=== PATIENT | female | born 1995 | race American Indian/Alaskan Native ===

== ENCOUNTER 2018-12-25 13:43 | Emergency (ER) | payer OTHER ==
[2018-12-25 13:48] VITALS: BP 106/56
--- NOTE | 2018-12-25 13:59 | Emergency Department Report ---
Blank Doc - Documentation Documentation: 23-year-old female that presents with abdominal pain and nausea. Denies any va ginal bleeding. Stated is now but is not sure how long. This initial assessment/diagnostic orders/clinical plan/treatment(s) is/are subject to change based on patient's health status, clinical progression and re- assessment by fellow clinical providers in the ED. Further treatment and workup at subsequent clinical providers discretion. Patient/guardians urged not to elope from the ED as their condition may be serious if not clinically assessed and managed. Initial orders include: 1- Patient sent to [facility] for further evaluation and treatment 2- labs 3- UA 4- US OB
--- NOTE | 2018-12-25 15:02 | Ultrasound Report ---
ULTRASOUND OB LESS THAN 14 WEEKS FETUS ULTRASOUND OB TRANSVAGINAL HISTORY: Pelvic pain COMPARISON: None. TECHNIQUE: Routine transabdominal OB ultrasound performed. FINDINGS: Uterus: The uterus is normal size measuring 7.4 x 5.8 x 6.8 cm. Gestational Sac: There appears to be an intrauterine gestational sac with average diameter measuring 2.24 cm which correlates with a 7 week 1 day . Yolk Sac: Not seen Fetus/Embryo: Not seen Embryonic/ cardiac activity: Not seen Ovaries: The right ovary measures 3.2 x 2.4 x 2.7 cm and contains an approximate 2.1 cm complex predo minantly solid lesion. The left ovary is unremarkable measuring 2.2 x 1.1 x 1.3 cm. Additional findings: None. IMPRESSION No normal intrauterine is demonstrated. An empty gestational sac is identified within the e ndometrial canal which correlates with a 7 week 1 day . Although this could represent a very early intrauterine blighted ovum should be considered. 2.1 cm complex lesion in the right ovary which may represent a corpus luteum cyst. Please note that an ectopic is not entirely excluded at this time. Close interval follow-up is recommended. Signer Name: Francisco Meneses Jr, MD Signed: 12/25/2018 2:57 PM Workstation Name: [id number]
[2018-12-25 15:46] LABS: Bacteria,Urine 1+ /HPF (Negative); Bilirubin,Urine NEG (Negative); Blood,Urine NEG (Negative); Color,Urine Yellow (Yellow); Mucus,Urine FEW /HPF; Protein,Urine <15 mg/dL mg/dL (Negative); Urobilinogen,Urine < 2.0 mg/dL (<2.0)
[2018-12-25 15:52] LABS: Hematocrit 37.2 % (30.3-42.9); Hemoglobin 12.2 gm/dl (10.1-14.3); Mean Corpuscular HGB Conc 33 % (30-34); Mean Corpuscular Volume 88 fl (79-97); Platelet Count 204 K/mm3 (140-440); Red Blood Count 4.25 M/mm3 (3.65-5.03); Red Cell Distribution Width 14.5 % (13.2-15.2)
--- NOTE | 2018-12-25 15:52 | Emergency Department Report ---
ED Female HPI - General Chief complaint: Abdominal Pain Stated complaint: STOMACH PAIN Time Seen by Provider: 12/25/18 13:58 Source: patient Mode of arrival: Ambulatory Limitations: No Limitations - History of Present Illness Initial comments: Aleena is a very pleasant 23 yo female who presents with one month of abdominal pain. She has LLQ stabbing intermittent pain every few days. No pain at this time. No vaginal bleeding. LMP Home test mother is at the bedside, provided similar history First for Aleena YIN Complaint: other (left lower quadrant pain positive home test LMP 10/31/2018) -: Gradual, month(s) (1) Severity: mild Quality: cramping, stabbing Consistency: intermittent, now resolved Improves with: none Worsens with: none Are you Now?: Yes Last Menstrual Period: 10/31/18 EDC: 08/07/19 - Related Data Sexually active: Yes : 1 Home Medications Medication Instructions Recorded Confirmed Last Taken ALBUTEROL Inhaler (OR & NICU) 2 puff IH QID PRN 01/07/13 01/07/13 Unknown [Proair] Montelukast [Singulair] 01/07/13 01/07/13 Unknown Previous Rx's Medication Instructions Recorded Last Taken Type Ibuprofen [Motrin 800 MG tab] 800 mg PO TID PRN #30 tablet 01/07/13 Unknown Rx ALBUTEROL Inhaler (OR & NICU) 2 puff IH Q4HR PRN #1 inhalation 01/28/18 Unknown Rx [ProAir HFA Inhaler] Benzonatate [Tessalon Perles] 100 mg PO Q8HR PRN #20 capsule 01/28/18 Unknown Rx Ibuprofen [Motrin] 800 mg PO Q8HR PRN #30 tablet 01/28/18 Unknown Rx levoFLOXacin [Levaquin] 750 mg PO QDAY #5 tablet 01/28/18 Unknown Rx levoFLOXacin [Levaquin] 750 mg PO QDAY #5 tablet 01/28/18 Unknown Rx Allergies Allergy/AdvReac Type Severity Reaction Status Date / Time No Known Allergies Allergy Verified 01/28/18 08:13 ED Review of Systems ROS: Stated complaint: STOMACH PAIN Other details as noted in HPI Comment: All other systems reviewed and negative Constitutional: denies: fever, malaise Gastrointestinal: abdominal pain. denies: nausea, vomiting ED Past Medical Hx - Past Medical History Previous Medical History?: Yes Hx Asthma: Yes - Family History Family history: hypertension - Social History Smoking Status: Never Smoker Substance Use Type: None - Medications Home Medications: Home Medications Medication Instructions Recorded Confirmed Last Taken Type ALBUTEROL Inhaler (OR & NICU) 2 puff IH QID PRN 01/07/13 01/07/13 Unknown History [Proair] Ibuprofen [Motrin 800 MG tab] 800 mg PO TID PRN #30 tablet 01/07/13 Unknown Rx Montelukast [Singulair] 01/07/13 01/07/13 Unknown History ALBUTEROL Inhaler (OR & NICU) 2 puff IH Q4HR PRN #1 inhalation 01/28/18 Unknown Rx [ProAir HFA Inhaler] Benzonatate [Tessalon Perles] 100 mg PO Q8HR PRN #20 capsule 01/28/18 Unknown Rx Ibuprofen [Motrin] 800 mg PO Q8HR PRN #30 tablet 01/28/18 Unknown Rx levoFLOXacin [Levaquin] 750 mg PO QDAY #5 tablet 01/28/18 Unknown Rx levoFLOXacin [Levaquin] 750 mg PO QDAY #5 tablet 01/28/18 Unknown Rx ED Physical Exam - General Limitations: No Limitations General appearance: alert, in no apparent distress, other (appears well, smiling, comfortable) - Head Head exam: Present: atraumatic, normocephalic - Eye Eye exam: Present: normal appearance - ENT ENT exam: Present: mucous membranes moist - Neck Neck exam: Present: normal inspection, full ROM - Respiratory Respiratory exam: Present: normal lung sounds bilaterally. Absent: respiratory distress, wheezes, rales - Cardiovascular Cardiovascular Exam: Present: regular rate, normal rhythm, normal heart sounds. Absent: systolic murmur, diastolic murmur, rubs, gallop - GI/Abdominal GI/Abdominal exam: Present: soft, normal bowel sounds. Absent: distended, tenderness, guarding, rebound - Extremities Exam Extremities exam: Present: normal inspection - Neurological Exam Neurological exam: Present: alert, oriented X3 - Psychiatric Psychiatric exam: Present: normal affect, normal mood - Skin Skin exam: Present: warm, dry, intact, normal color. Absent: rash ED Course Vital Signs 12/25/18 13:47 Temperature 97.5 F L Pulse Rate 70 Respiratory 19 Rate Blood Pressure 106/56 O2 Sat by Pulse 99 Oximetry ED Medical Decision Making - Lab Data Result diagrams: 12/25/18 14:56 Laboratory Results - last 24 hr 12/25/18 12/25/18 12/25/18 14:56 14:56 15:17 WBC 6.2 RBC 4.25 Hgb 12.2 Hct 37.2 MCV 88 MCH 29 MCHC 33 RDW 14.5 Plt Count 204 Seg Neutrophils % Truck Technician HCG, Quant 85128 H Urine Color Yellow Urine Turbidity Turbid Urine pH 7.0 Ur Specific [place] 1.017 Urine Protein <15 mg/dl Urine Glucose (UA) Neg Urine Ketones Neg Urine Blood Neg Urine Nitrite Neg Urine Bilirubin Neg Urine Urobilinogen < 2.0 Ur Leukocyte Esterase Neg Urine WBC (Auto) 14.0 H Urine RBC (Auto) 5.0 U Epithel Cells (Auto) 11.0 Urine Bacteria (Auto) 1+ Urine WBC Clumps 3+ Urine Mucus Few Urine Yeast (Budding) 3+ Blood Type Ord Rhogam Gestat Weeks 12/25/18 16:22 WBC RBC Hgb Hct MCV MCH MCHC RDW Plt Count Seg Neutrophils % HCG, Quant Urine Color Urine Turbidity Urine pH Ur Specific [place] Urine Protein Urine Glucose (UA) Urine Ketones Urine Blood Urine Nitrite Urine Bilirubin Urine Urobilinogen Ur Leukocyte Esterase Urine WBC (Auto) Urine RBC (Auto) U Epithel Cells (Auto) Urine Bacteria (Auto) Urine WBC Clumps Urine Mucus Urine Yeast (Budding) Blood Type O POSITIVE Ord Rhogam Gestat Weeks Rh pos - Radiology Data Radiology results: report reviewed Gestational sac without pole 2 cm right sided corpus luteum cysts according to radiology report - Medical Decision Making Sanjana presents with 1 month of intermittent stabbing pain on the left side. She does not have the pain at this time. She has positive home test. Beta-hCG gradient 22,000. Ultrasound reveals likely gestational sac without pole. Differential diagnosis includes missed , ectopic , early intrauterine . She understands the possibility of tubal . She will return in 2 days for repeat hCG and likely ultrasound. Critical care attestation.: If time is entered above; I have spent that time in minutes in the direct care of this critically ill patient, excluding procedure time. ED Disposition Clinical Impression: Threatened miscarriage in early Disposition: DC-01 TO HOME OR SELFCARE Is pt being admited?: No Does the pt Need Aspirin: No Condition: Stable Instructions: Abdominal Pain in (ED), Threatened Miscarriage (ED) Additional Instructions: Please return in the ER in 2 days for repeat hCG level. We must rule out ectopic . Referrals: HAO SCRUGGS MD [Staff Physician] - 3-5 Days
[2018-12-25 16:53] LABS: RBC Morphology Normal; Total Cells Counted 100
== END 2018-12-25 17:16 | disposition home or self-care (01) ==
LOC: ED 13:43
DX: O20.0 Threatened abortion (principal); O13.1 Gestational [pregnancy-induced] hypertension without significant proteinuria, first trimester; O99.511 Diseases of the respiratory system complicating pregnancy, first trimester; Z3A.01 Less than 8 weeks gestation of pregnancy; Z79.899 Other long term (current) drug therapy
CPT/HCPCS: 36415; 76801; 76817; 81001; 84702; 85007; 85025; 86900; 86901; 87076; 87086; 87186

== ENCOUNTER 2018-12-27 18:01 | Emergency (ER) | payer OTHER ==
--- NOTE | 2018-12-27 22:44 | Emergency Department Report ---
<LUZ MARINAOfeliaSIDRAArash Mancera - Last Filed: 12/27/18 22:58> ED Female HPI - General Chief complaint: Recheck/Abnormal Lab/Rx Stated complaint: /BLOOD CHECK Time Seen by Provider: 12/27/18 20:41 Source: patient Mode of arrival: Ambulatory Limitations: No Limitations - History of Present Illness Initial comments: 23-year-old -Y[place] female presented to the emergency room stating she was told to return for follow-up repeat hCG for . Patient was seen on 12/25/2018 [place] [address]. Patient had an ultrasound which showed a gestational sac with no pole. - Related Data Home Medications Medication Instructions Recorded Confirmed Last Taken ALBUTEROL Inhaler (OR & NICU) 2 puff IH QID PRN 01/07/13 01/07/13 Unknown [Proair] Montelukast [Singulair] 01/07/13 01/07/13 Unknown Previous Rx's Medication Instructions Recorded Last Taken Type Ibuprofen [Motrin 800 MG tab] 800 mg PO TID PRN #30 tablet 01/07/13 Unknown Rx ALBUTEROL Inhaler (OR & NICU) 2 puff IH Q4HR PRN #1 inhalation 01/28/18 Unknown Rx [ProAir HFA Inhaler] Benzonatate [Tessalon Perles] 100 mg PO Q8HR PRN #20 capsule 01/28/18 Unknown Rx Ibuprofen [Motrin] 800 mg PO Q8HR PRN #30 tablet 01/28/18 Unknown Rx levoFLOXacin [Levaquin] 750 mg PO QDAY #5 tablet 01/28/18 Unknown Rx levoFLOXacin [Levaquin] 750 mg PO QDAY #5 tablet 01/28/18 Unknown Rx Allergies Allergy/AdvReac Type Severity Reaction Status Date / Time No Known Allergies Allergy Verified 12/27/18 18:56 ED Past Medical Hx - Past Medical History Previous Medical History?: Yes Hx Asthma: Yes - Surgical History Past Surgical History?: No - Social History Smoking Status: Never Smoker Substance Use Type: None - Medications Home Medications: Home Medications Medication Instructions Recorded Confirmed Last Taken Type ALBUTEROL Inhaler (OR & NICU) 2 puff IH QID PRN 01/07/13 01/07/13 Unknown History [Proair] Ibuprofen [Motrin 800 MG tab] 800 mg PO TID PRN #30 tablet 01/07/13 Unknown Rx Montelukast [Singulair] 01/07/13 01/07/13 Unknown History ALBUTEROL Inhaler (OR & NICU) 2 puff IH Q4HR PRN #1 inhalation 01/28/18 Unknown Rx [ProAir HFA Inhaler] Benzonatate [Tessalon Perles] 100 mg PO Q8HR PRN #20 capsule 01/28/18 Unknown Rx Ibuprofen [Motrin] 800 mg PO Q8HR PRN #30 tablet 01/28/18 Unknown Rx levoFLOXacin [Levaquin] 750 mg PO QDAY #5 tablet 01/28/18 Unknown Rx levoFLOXacin [Levaquin] 750 mg PO QDAY #5 tablet 01/28/18 Unknown Rx ED Physical Exam - General Limitations: No Limitations ED Medical Decision Making - Radiology Data Radiology results: report reviewed Patient: GIOVANNA CORMIER MR#: [id number] : 1995 Acct:[id number] Age/Sex: 23 / F ADM Date: 12/27/18 Loc: ED Attending Dr: Ordering Physician: CELIO WHITT Date of Service: 12/27/18 Procedure(s): US OB transvaginal Accession Number(s): [id number] cc: CELIO WHITT OB ultrasound FINDINGS: There is an empty gestational sac in the uterus with decidual reaction but no pole or yolk sac. Sac measurements reveal an MA of 7 weeks 3 days by again no pole is identified likely due to blighted ovum. Both ovaries appear normal. No free fluid seen. IMPRESSION: Probable blighted ovum. Correlation with beta hCG levels may be of benefit. Signer Name: Alex Bhakta MD Signed: 12/27/2018 10:45 PM Workstation Name: [id number] Transcribed By: JM Dictated By: Alex Bhakta MD Electronically Authenticated By: Alex Bhakta MD Signed Date/Time: 12/27/182244 DD/ 42 TD/TT: - Medical Decision Making 23-year-old -[place] female presented to the emergency room stating she was told to return for follow-up repeat hCG for . Patient was seen on 12/25/2018 [place] [address]. Patient had an ultrasound which showed a gestational sac with no pole. Spoke with Dr. Banegas DATA COLLECTION TECHNICIAN for [employer] [facility] DATA COLLECTION TECHNICIAN she reports patient having a missed . Dr. Peacock recommended patient to follow up with a light cycle DATA COLLECTION TECHNICIAN. ED Disposition Clinical Impression: Blighted ovum Disposition: - TO HOME OR SELFCARE Is pt being admited?: No Does the pt Need Aspirin: No Condition: Stable Instructions: Spontaneous Miscarriage (ED) Additional Instructions: Please follow up with her DATA COLLECTION TECHNICIAN. Tylenol for pain management. Referrals: EDILBERTO MILLER MD [Primary Care Provider] - 3-5 Days CARITO PEACOCK MD [Staff Physician] - 3-5 Days <ANA MAI. - Last Filed: 12/29/18 02:07> ED Review of Systems ROS: Stated complaint: /BLOOD CHECK Other details as noted in HPI ED Course Vital Signs 12/27/18 12/27/18 18:55 23:10 Temperature 98.0 F Pulse Rate 77 73 Respiratory 16 18 Rate Blood Pressure 114/66 Blood Pressure 105/63 [Left] O2 Sat by Pulse 99 99 Oximetry Critical care attestation.: If time is entered above; I have spent that time in minutes in the direct care of this critically ill patient, excluding procedure time. ED Disposition Is pt being admited?: No
--- NOTE | 2018-12-27 22:49 | Ultrasound Report ---
OB ultrasound FINDINGS: There is an empty gestational sac in the uterus with decidual reaction but no pole or yolk sac. Sac measurements reveal an MA of 7 weeks 3 days by again no pole is identified likel y due to blighted ovum. Both ovaries appear normal. No free fluid seen. IMPRESSION: Probable blighted ovum. Correlation with beta hCG levels may be of benefit. Signer Name: Alex Bhakta MD Signed: 12/27/2018 10:45 PM Workstation Name: [id number]
[2018-12-27 23:14] VITALS: BP 105/63
== END 2018-12-27 23:10 | disposition home or self-care (01) ==
LOC: ED 18:01
DX: O02.0 Blighted ovum and nonhydatidiform mole (principal); O99.511 Diseases of the respiratory system complicating pregnancy, first trimester; J45.909 Unspecified asthma, uncomplicated; Z79.899 Other long term (current) drug therapy; Z79.1 Long term (current) use of non-steroidal anti-inflammatories (NSAID); Z3A.01 Less than 8 weeks gestation of pregnancy
CPT/HCPCS: 36415; 76801; 76817; 84702; 99283